=== PATIENT | male | born 1985 | race American Indian/Alaskan Native ===

== ENCOUNTER 2019-03-19 17:23 | Emergency (ER) | payer OTHER ==
[2019-03-19 18:00] VITALS: BP 127/55
[2019-03-19] MEDS ORDERED: BOOSTRIX IM ONE ×2 (18:00→20:35)
--- NOTE | 2019-03-19 18:00 | Emergency Department Report ---
Chief Complaint: Wound/Laceration Stated Complaint: RT INDEX FINGER Time Seen by Provider: 03/19/19 17:58 - HPI History of Present Illness: presents with laceration to the right index finger that occurred just [employer] states he was measuring the gutters and pulled hard and cut himself with the measuring tool bleeding controlled no numbness or weakness able to move the digit without difficulty unsure of last tetanus MSE screening note: Focused history performed. Due to findings the following was ordered: tetanus immunization ED Disposition for MSE Condition: Stable
--- NOTE | 2019-03-19 20:27 | Emergency Department Report ---
ED Laceration HPI - HPI Chief Complaint: Wound/Laceration Stated Complaint: RT INDEX FINGER Time Seen by Provider: 03/19/19 17:58 Occurred When: Today Location: Upper Extremity (right, 2nd digit) Severity: moderate Tetanus Status: Not up to Date Laceration Symptoms: Yes Pain, No Foreign Body Sensation, No Numbness, No Weakness Other History: This is a 33-year-old female presents to the emergency room with a laceration to right second finger. He states he was using a tape measure when he sliced his finger 3 hours prior to arrival. She cleaned area with water and applied a bandage. Patient is unsure of last tetanus vaccine. States he is able to move finger. Denies numbness or tingling, swelli ng, or bruising. ED Review of Systems ROS: Stated complaint: RT INDEX FINGER Other details as noted in HPI Constitutional: denies: chills, fever Respiratory: denies: cough, shortness of breath, wheezing Cardiovascular: denies: chest pain, palpitations Gastrointestinal: denies: abdominal pain, nausea, diarrhea Skin: lesions (laceration of second right finger). denies: rash Neurological: denies: headache, weakness, paresthesias Psychiatric: denies: anxiety, depression ED Past Medical Hx - Past Medical History Previous Medical History?: No - Surgical History Additional Surgical History: arm surgery - Social History Smoking Status: Current Every Day Smoker Substance Use Type: None - Medications Home Medications: Home Medications Medication Instructions Recorded Confirmed Last Taken Type Clindamycin [Clindamycin CAP] 300 mg PO Q8H #21 cap 03/19/19 Unknown Rx Laceration Physical Exam - Exam General: Vital signs noted. No distress. Alert and acting appropriately. Wound Length (cm): 1 Laceration Location: Upper Extremity Full Body Front + Back: 1 - 1 cm linear laceration into the epidermis of palmar proximal second p halanx, full range of motion, no swelling, erythema, neurologically intact. Laceration Exam: Yes Normal Distal CMS, No Foreign Body, No Exposed Tendon, Vessel, or Nerve, No Tendon Injury ED Course Vital Signs 03/19/19 17:58 Temperature 98.0 F Pulse Rate 79 Respiratory 18 Rate Blood Pressure 127/55 [Left] O2 Sat by Pulse 97 Oximetry - Laceration /Wound Repair Right Anterior Proximal Plantar Finger Wound Location: upper extremity (right second proximal palm phalanx) Wound Length (cm): 1 Wound's Depth, Shape: superficial, linear Wound Explored: clean Irrigated w/ Saline (ccs): 10 Betadine Prep?: Yes Wound Repaired With: Dermabond Layer Closure?: No Sterile Dressing Applied?: Yes ED Medical Decision Making - Medical Decision Making This is a 33 y.o. male presents with right 2nd phalanx. Patient examined by me. Patient is non-toxic appearing and stable. Laceration closed with Dermabond, review note. Patient given the boostrix vaccine while in ER. Discharged home for outpatient treatment with clindamycin. Discussed ER care plan with patient. Patient agreed with plan. F/U with PCP. Critical care attestation.: If time is entered above; I have spent that time in minutes in the direct care of this critically ill patient, excluding procedure time. ED Disposition Clinical Impression: Laceration of finger Qualifiers: Encounter type: initial encounter Finger: index finger Damage to nail status: without damage Foreign body presence: without foreign body Laterality: right Qualified Code(s): S61.210A - Laceration without foreign body of right index finger without damage to nail, initial encounter Disposition: DC-01 TO HOME OR SELFCARE Is pt being admited?: No Does the pt Need Aspirin: No Condition: Stable Instructions: Laceration (ED), Skin Adhesive Care (ED) Additional Instructions: Take antibiotics as prescribed for the full course. Keep wound dry and clean for 48 hours. Avoid putting to much tension on wound site. Prop arm up on pillows to decrease swelling. Follow up with Primary Care Provider in 2-3 days. Return to ER if red, swollen, foul discharge, or fever. Prescriptions: Clindamycin [Clindamycin CAP] 300 mg PO Q8H #21 cap Referrals: HEMANT BOLIVAR MD [Primary Care Provider] - 3-5 Days [facility] [Outside] - 3-5 Days [facility] [Outside] - 3-5 Days Forms: Work/School Release Form(ED) Time of Disposition: 21:57
[2019-03-19] MEDS ORDERED: XYLOCAINE 1% MPF 5 mL INFILTRATI ONE (20:28)
== END 2019-03-19 22:06 | disposition home or self-care (01) ==
LOC: ED 17:23
DX: S61.210A Laceration without foreign body of right index finger without damage to nail, initial encounter (principal); F17.200 Nicotine dependence, unspecified, uncomplicated; W45.8XXA Other foreign body or object entering through skin, initial encounter; Y93.89 Activity, other specified; Y92.89 Other specified places as the place of occurrence of the external cause; Y99.8 Other external cause status
CPT/HCPCS: 90471; 90715